=== PATIENT | female | born 1985 | race Caucasian/White ===

== ENCOUNTER 2017-01-24 07:21 | Day surgery (SDC) | payer MEDICAID ==
[2017-01-24 07:58] VITALS: BMI 25.0
[2017-01-24] MEDS ORDERED: Propofol 10 mg/ml Inj (20 ML) ONE (09:09)
[2017-01-24] MEDS ORDERED: Lactated Ringer's 500 ML IV ONE (09:20)
[2017-01-24 09:43] VITALS: O2SAT 100
[2017-01-24 09:58] VITALS: BP 105/61; PULSE 51; RESP 17; TEMP 96.8
== END 2017-01-24 10:30 | disposition home or self-care (01) ==
LOC: H.ENDO 07:21
PROVIDERS: ATTEND Internal Medicine Gastroenterology
DX: R10.13 Epigastric pain (principal); K29.70 Gastritis, unspecified, without bleeding
CPT/HCPCS: 43239; 88305; J2001; J2704; J7120